=== PATIENT | male | born 1965 | race African-American/Black ===

== ENCOUNTER 2020-10-03 08:41 | Inpatient (IN) | payer BC ==
[~2020-10-03] VITALS: Ht 180.3 cm; Wt 83.5 kg
[2020-10-03] MEDS ORDERED: ACETAMINOPHEN 325MG TABLET PO STA (08:51)
[2020-10-03] MEDS ORDERED: LIDOCAINE HCL/PF 1% 2ML VIAL ONE (09:00)
[2020-10-03] MEDS ORDERED: CEFTRIAXONE 1 G PREMIX 50 ML IV ONE (09:00)
[2020-10-03] MEDS ORDERED: AZITHROMYCIN 500 MG in DEXT 5% WATER 250 ML IV ONE (09:00)
[2020-10-03] MEDS ORDERED: SODIUM CHLORIDE 0.9% 1000ML BAG (SEPSIS BOLUS) IV ONE (09:00)
[2020-10-03 09:30] LABS: BASOPHILS % 0.2 % (0.0-2.0); EOSINOPHILS % 0.1 % (0.0-5.0); HEMATOCRIT. 39.7 % (42.0-52.0); HEMOGLOBIN. 13.1 g/dL (14.0-18.0); LYMPHOCYTES % 8.1 % (20.0-50.0); MEAN CORPUSCULAR HEMOGLOBIN 30.3 pg (28.0-32.0); MEAN CORPUSCULAR VOLUME 91.8 fL (80.0-94.0); MEAN PLATELET VOLUME 9.3 fl (7.4-10.4); NEUTROPHILS % 85.6 % (40.0-76.0); PLATELET 253 x1000/uL (130-400); RED BLOOD CELL COUNT 4.32 mill/uL (4.7-6.1); RED CELL DISTRIBUTION WIDTH 12.9 % (11.6-14.6)
[2020-10-03 09:38] LABS: CHLORIDE 109 mEq/L (98-107)
[2020-10-03 09:40] LABS: INR 1.2; PROTHROMBIN TIME 12.5 sec (9.6-11.0)
[2020-10-03] MEDS ORDERED: DEXAMETHASONE 10 MG/ML VIAL IV ONE (09:45)
[2020-10-03] MEDS ORDERED: POTASSIUM CHLORIDE 20MEQ TABLET SR PO ONE (10:30)
[2020-10-03 12:55] LABS: CLARITY URINE CLEAR (CLEAR); COLOR URINE YELLOW (YELLOW); KETONES URINE 1+ (NEGATIVE); LEUKOCYTE ESTERASE URINE NEGATIVE (NEGATIVE); NITRITE URINE NEGATIVE (NEGATIVE); OCCULT BLOOD URINE 2+ (NEGATIVE); PROTEIN URINE 1+ (NEGATIVE); SPECIFIC GRAVITY URINE 1.019 (1.005-1.030); UROBILINOGEN URINE 0.2 E.U./dL (0.2-1.0)
[2020-10-03] MEDS ORDERED: AZITHROMYCIN 500 MG in DEXT 5% WATER 250 ML IV SCH (13:00)
[2020-10-03] MEDS ORDERED: DIPHENHYDRAMINE 50MG/ML VIAL IV PRN (13:00)
[2020-10-03] MEDS ORDERED: DOCUSATE SODIUM 100MG CAPSULE PO PRN (13:00)
[2020-10-03] MEDS ORDERED: GUAIFENESIN 200MG/10ML SUGAR FREE UDC PO PRN (13:00)
[2020-10-03] MEDS ORDERED: ONDANSETRON HCL 4MG/2ML INJ IV PRN (13:00)
[2020-10-03] MEDS ORDERED: ACETAMINOPHEN 650MG SUPP PR PRN (13:00)
[2020-10-03] MEDS ORDERED: LORAZEPAM 0.5MG TABLET PO PRN (13:00)
[2020-10-03] MEDS ORDERED: ACETAMINOPHEN 325MG TABLET PO PRN (13:00)
[2020-10-03] MEDS ORDERED: CLONIDINE 0.1MG TABLET PO PRN (13:00)
[2020-10-03] MEDS ORDERED: MAGNESIUM/ALUMINUM HYDROXIDE/SIMETHICONE 30ML UDC PO PRN (13:00)
[2020-10-03] MEDS ORDERED: HYDROCODONE/ACETAMINOPHEN 5/325MG TABLET PO PRN (13:00)
[2020-10-03] MEDS ORDERED: CEFTRIAXONE 1 G PREMIX 50 ML IV SCH (13:00)
[2020-10-03] MEDS ORDERED: NA PHOS,M-B/NA PHOS,DI-BA ENEMA 118ML PR PRN (13:00)
[2020-10-03 13:42] LABS: BG BASE EXCESS 1.2 mmol/L (-2.0-2.0); BG CARBOXYHEMOGLOBIN 0.3 % (0.5-1.5); BG DEOXYHEMOGLOBIN 4.1 % (0.0-5.0); BG HCO3 ACT 25.8 mmol/L (22.0-26.0); BG METHEMOGLOBIN 0.4 % (0.0-1.5); BG OXYGEN SATURATION 95.9 % (92.0-98.5); BG OXYHEMOGLOBIN 95.2 % (94.0-97.0); BG PCO2 40.8 mmHg (35.0-45.0); BG PH 7.419 (7.350-7.450); BG PO2 83.2 mmHg (75.0-100.0); BG SAMPLE SITE RIGHT RADIAL; BG TOTAL HEMOGLOBIN 12.3 g/dL (12.0-18.0); BG VENT MODE NASAL CANNULA
[2020-10-03] MEDS: ENOXAPARIN 40MG/0.4ML SYR SUBCUT SCH (15:11)
[2020-10-03] MEDS: FAMOTIDINE 20MG/2ML VIAL IV SCH (15:12)
[2020-10-03] MEDS: AMLODIPINE 5MG TABLET PO SCH (15:21)
[2020-10-03 17:13] VITALS: BP_SYST 148; BP_SYST 171; BP_DIAS 98
[2020-10-03 20:00] VITALS: BP 146/99
[2020-10-03] MEDS ORDERED: IVERMECTIN 3 MG TABLET PO SCH (22:20)
[2020-10-04] VITALS: BP 148/98
[2020-10-04 04:00] VITALS: BP 158/91
[2020-10-04 07:01] LABS: CHLORIDE 114 mEq/L (98-107)
[2020-10-04 07:09] LABS: LDL CHOLESTEROL 58 mg/dL (5-100)
[2020-10-04 07:10] LABS: HDL CHOLESTEROL 26 mg/dL (40-59)
[2020-10-04 07:11] LABS: PROSTRATE SPECIFIC AG TOTAL 9.83 ng/mL (0.0-4.0)
[2020-10-04 07:23] LABS: HEPATITIS B SURFACE ANTIGEN NEGATIVE
[2020-10-04 07:52] LABS: HEPATITIS A AB IGM NEGATIVE (NEGATIVE)
[2020-10-04 07:53] LABS: BASOPHILS % 0.5 % (0.0-2.0); HEMATOCRIT. 40.9 % (42.0-52.0); HEMOGLOBIN. 13.6 g/dL (14.0-18.0); LYMPHOCYTES % 9.8 % (20.0-50.0); MEAN CORPUSCULAR HEMOGLOBIN 30.7 pg (28.0-32.0); MEAN PLATELET VOLUME 9.5 fl (7.4-10.4); MONOCYTES % 4.7 % (2.0-8.0); RED BLOOD CELL COUNT 4.44 mill/uL (4.7-6.1); RED CELL DISTRIBUTION WIDTH 12.9 % (11.6-14.6)
[2020-10-04 08:00] VITALS: BP 146/81
[2020-10-04 08:13] LABS: PLATELET 115 x1000/uL (130-400)
[2020-10-04] MEDS: FAMOTIDINE 20MG/2ML VIAL IV SCH (08:54)
[2020-10-04] MEDS: AMLODIPINE 5MG TABLET PO SCH (08:54)
[2020-10-04 09:14] LABS: *AMPHETAMINES SCREEN URINE NEGATIVE (NEGATIVE); *BARBITURATES SCREEN URINE NEGATIVE (NEGATIVE); *BENZODIAZEPINES SCREEN URINE PRESUMTIVE POSITIVE (NEGATIVE); *COCAINE SCREEN URINE NEGATIVE (NEGATIVE); METHADONE URINE SCREEN NEGATIVE (NEGATIVE); OPIATES URINE SCREEN NEGATIVE (NEGATIVE)
[2020-10-04 09:15] LABS: CANNABINOID URINE SCREEN NEGATIVE (NEGATIVE); PHENCYCLIDINE URINE SCREEN NEGATIVE (NEGATIVE)
[2020-10-04] MEDS ORDERED: CEFTRIAXONE 1,000 MG in DEXTROSE 5% WATER 50 ML IV SCH (14:00)
[2020-10-04] MEDS ORDERED: AZITHROMYCIN 250 MG in DEXT 5% WATER 250 ML IV SCH (14:00)
[2020-10-04] MEDS: ENOXAPARIN 40MG/0.4ML SYR SUBCUT SCH (14:37)
[2020-10-04 20:00] VITALS: BP 140/83
[2020-10-05] MEDS ORDERED: IVERMECTIN 3 MG TABLET PO SCH (21:00)
[2020-10-06 05:12] LABS: HIV SCREEN 4G Non Reactive (Non Reactive)
== END 2020-10-05 00:05 | disposition left against medical advice (07) | DRG 871 ==
LOC: ER 08:41 → 7WST 12:19 → SUPCPDRO 12:58 → ENRESERV 15:15 → 5WST 10-04 03:35
PROVIDERS: ADMIT Internal Medicine; ATTEND Internal Medicine
DX: A41.9 Sepsis, unspecified organism (principal); J96.01 Acute respiratory failure with hypoxia; J18.9 Pneumonia, unspecified organism; D64.9 Anemia, unspecified; D72.810 Lymphocytopenia; E87.6 Hypokalemia; I10 Essential (primary) hypertension; R31.9 Hematuria, unspecified; R74.01 Elevation of levels of liver transaminase levels; R19.7 Diarrhea, unspecified; Z20.822 Contact with and (suspected) exposure to COVID-19; Z53.29 Procedure and treatment not carried out because of patient's decision for other reasons
CPT/HCPCS: 36415; 36600; 71045; 76700; 80053; 80061; 80305; 81003; 82270; 82375; 82805; 83036; 83605; 84145; 84153; 84439; 84443; 84484; 85025; 85379; 86141; 86705; 86709; 86803; 86850; 86900; 87015; 87045; 87340; 87389; 87427; 87449; 89055; 93005; 93306; 93970; 99291; J0456; J0696; J1100; J1200; J1650; J3490; J7030; J7040; J7060; U0003; G0103

== ENCOUNTER 2021-12-19 22:21 | Inpatient (IN) | payer BC ==
[~2021-12-19] VITALS: Ht 180.3 cm; Wt 91.4 kg
[2021-12-19] MEDS ORDERED: IOHEXOL-350 100 ML BOTTLE ONE (23:17)
[2021-12-19] MEDS ORDERED: SODIUM CHLORIDE 0.9% 1,000 ML IV ONE (23:45)
[2021-12-19 23:48] LABS: BASOPHILS % 0.3 % (0.0-2.0); EOSINOPHILS % 0.9 % (0.0-5.0); HEMATOCRIT. 38.7 % (42.0-52.0); HEMOGLOBIN. 13.2 g/dL (14.0-18.0); LYMPHOCYTES % 16.8 % (20.0-50.0); MEAN CORPUSCULAR HEMOGLOBIN 31.8 pg (28.0-32.0); MEAN CORPUSCULAR VOLUME 92.8 fL (80.0-94.0); MEAN PLATELET VOLUME 8.8 fl (7.4-10.4); MONOCYTES % 7.1 % (2.0-8.0); NEUTROPHILS % 74.9 % (40.0-76.0); PLATELET 183 x1000/uL (130-400); RED BLOOD CELL COUNT 4.17 mill/uL (4.7-6.1); RED CELL DISTRIBUTION WIDTH 12.4 % (11.6-14.6)
[2021-12-19 23:55] LABS: CHLORIDE 102 mEq/L (98-107)
[2021-12-19 23:59] LABS: ETHANOL BLOOD < 10 mg/dL
[2021-12-20] VITALS (7 sets, daily range): BP systolic 110–139; BP diastolic 63–96
[2021-12-20 00:22] LABS: CLARITY URINE CLEAR (CLEAR); COLOR URINE YELLOW (YELLOW); KETONES URINE NEGATIVE (NEGATIVE); LEUKOCYTE ESTERASE URINE NEGATIVE (NEGATIVE); NITRITE URINE NEGATIVE (NEGATIVE); OCCULT BLOOD URINE NEGATIVE (NEGATIVE); PH URINE 7.5 (4.5-8.0); PROTEIN URINE NEGATIVE (NEGATIVE); SPECIFIC GRAVITY URINE 1.022 (1.005-1.030); UROBILINOGEN URINE 0.2 E.U./dL (0.2-1.0)
[2021-12-20 00:32] LABS: *BARBITURATES SCREEN URINE NEGATIVE (NEGATIVE); *COCAINE SCREEN URINE NEGATIVE (NEGATIVE); CANNABINOID URINE SCREEN NEGATIVE (NEGATIVE); PHENCYCLIDINE URINE SCREEN NEGATIVE (NEGATIVE)
[2021-12-20 00:33] LABS: *AMPHETAMINES SCREEN URINE NEGATIVE (NEGATIVE); *BENZODIAZEPINES SCREEN URINE PRESUMTIVE POSITIVE (NEGATIVE); METHADONE URINE SCREEN NEGATIVE (NEGATIVE); OPIATES URINE SCREEN NEGATIVE (NEGATIVE)
[2021-12-20] MEDS ORDERED: GUAIFENESIN 200MG/10ML SUGAR FREE UDC PO PRN (04:30)
[2021-12-20] MEDS ORDERED: LORAZEPAM 0.5MG TABLET PO PRN (04:30)
[2021-12-20] MEDS ORDERED: ONDANSETRON HCL 4MG/2ML INJ IV PRN (04:30)
[2021-12-20] MEDS ORDERED: IPRATROPIUM/ALBUTEROL 0.5-3(2.5)MG/3ML NEB HHN PRN (04:30)
[2021-12-20] MEDS ORDERED: CLONIDINE 0.1MG TABLET PO PRN (04:30)
[2021-12-20] MEDS: ACETAMINOPHEN 325MG TABLET PO PRN (06:04)
[2021-12-20] MEDS ORDERED: ENOXAPARIN 40MG/0.4ML SYR SUBCUT SCH (09:00)
[2021-12-20] MEDS ORDERED: ENOXAPARIN 30MG/0.3ML SYR SUBCUT SCH (09:00)
[2021-12-20] MEDS ORDERED: MAGN400C PO (10:34)
[2021-12-20] MEDS ORDERED: TAMS-11 PO (10:34)
[2021-12-20] MEDS ORDERED: ALPR-394 PO (10:34)
[2021-12-20] MEDS ORDERED: ATOR40TA70 PO (10:34)
[2021-12-20] MEDS ORDERED: AZIL40TA MT (10:34)
[2021-12-20] MEDS ORDERED: ZOLP10TA2 PO (10:34)
[2021-12-20] MEDS ORDERED: ALD2525 PO (10:34)
[2021-12-20] MEDS: ASPIRIN 81MG EC TABLET PO SCH (10:41)
[2021-12-20] MEDS: ALPRAZOLAM 0.5 MG TABLET PO SCH (10:42)
[2021-12-20] MEDS ORDERED: *PATIENT'S OWN MEDICATION STORAGE XX SCH (11:15)
[2021-12-20] MEDS ORDERED: PNEUMOCOCCAL 23-VAL P-SAC VAC 0.5 ML IM ONE (11:15)
[2021-12-20] MEDS ORDERED: INFLUENZA VACCINE 05/PF 0.5 ML SYRINGE IM ONE (11:15)
[2021-12-20] MEDS ORDERED: ASPIRIN 81MG TABLET PO SCH (15:00)
[2021-12-20] MEDS ORDERED: HYDRALAZINE 20MG/ML VIAL IV PRN (15:15)
[2021-12-20] MEDS ORDERED: SPIRONOLACTONE 25MG TABLET PO SCH (15:15)
[2021-12-20] MEDS ORDERED: TAMSULOSIN HCL 0.4MG SR CAPSULE PO SCH (21:00)
[2021-12-20] MEDS ORDERED: ATORVASTATIN CALCIUM 40MG TABLET PO SCH (21:00)
[2021-12-20] MEDS ORDERED: ZOLPIDEM TARTRATE 5MG TABLET PO PRN (21:00)
[2021-12-20] MEDS ORDERED: ATORVASTATIN CALCIUM 10MG TABLET PO SCH (21:00)
[2021-12-21] VITALS: BP 112/60
[2021-12-21] MEDS: ACETAMINOPHEN 325MG TABLET PO PRN (00:26)
[2021-12-21 04:00] VITALS: BP 105/69
[2021-12-21 07:46] LABS: BASOPHILS % 0.6 % (0.0-2.0); CHLORIDE 104 mEq/L (98-107); EOSINOPHILS % 1.6 % (0.0-5.0); HEMATOCRIT. 40.1 % (42.0-52.0); LYMPHOCYTES % 20.7 % (20.0-50.0); MEAN CORPUSCULAR HEMOGLOBIN 31.7 pg (28.0-32.0); MEAN CORPUSCULAR VOLUME 90.8 fL (80.0-94.0); MEAN PLATELET VOLUME 8.9 fl (7.4-10.4); MONOCYTES % 6.4 % (2.0-8.0); NEUTROPHILS % 70.7 % (40.0-76.0); PLATELET 197 x1000/uL (130-400); RED BLOOD CELL COUNT 4.42 mill/uL (4.7-6.1); RED CELL DISTRIBUTION WIDTH 12.4 % (11.6-14.6)
[2021-12-21 08:00] VITALS: BP_SYST 123; BP_SYST 127; BP_SYST 132; BP_DIAS 80; BP_DIAS 81; BP_DIAS 82
[2021-12-21] MEDS: ASPIRIN 81MG EC TABLET PO SCH (08:12)
[2021-12-21] MEDS: ALPRAZOLAM 0.5 MG TABLET PO SCH (08:12)
[2021-12-21] MEDS ORDERED: ENOXAPARIN 40MG/0.4ML SYR SUBCUT SCH (09:00)
[2021-12-21 12:00] VITALS: BP 119/71
[2021-12-21 15:12] VITALS: BP 119/71
[2021-12-21 16:00] VITALS: BP 121/83
== END 2021-12-21 16:47 | disposition home or self-care (01) | DRG 312 ==
LOC: ER 22:21 → 8WST 12-20 01:46 → EDBEDREQSVC 12-20 01:49 → EDBEDREQTM 12-20 01:49 → EDBEDREQ 12-20 01:49 → EDBEDREQSVC 12-20 07:15 → ENRESERV 12-20 08:09
PROVIDERS: ADMIT Internal Medicine; ATTEND Internal Medicine
DX: I95.1 Orthostatic hypotension (principal); N17.9 Acute kidney failure, unspecified; E87.1 Hypo-osmolality and hyponatremia; E78.5 Hyperlipidemia, unspecified; I10 Essential (primary) hypertension; F41.9 Anxiety disorder, unspecified; G47.00 Insomnia, unspecified; I15.8 Other secondary hypertension; R73.9 Hyperglycemia, unspecified; Z87.891 Personal history of nicotine dependence; Z23 Encounter for immunization; T50.995A Adverse effect of other drugs, medicaments and biological substances, initial encounter; Y92.89 Other specified places as the place of occurrence of the external cause
CPT/HCPCS: 36415; 70496; 70498; 70551; 71045; 76770; 80048; 80053; 80305; 80320; 81003; 82962; 83036; 83880; 84484; 85025; 90686; 90732; 93005; 93306; 99285; J1650; J7030; J7040; Q9967; G0480

== ENCOUNTER 2022-03-28 13:11 | Emergency (ER) | payer BC ==
[~2022-03-28] VITALS: Ht 182.9 cm; Wt 91.0 kg
[~2022-03-28 13:11] MED LIST: ALD2525 PO; ALPR-394 PO; ATOR40TA70 PO; MAGN400C PO; TAMS-11 PO; ZOLP10TA2 PO
[2022-03-28] MEDS ORDERED: SODIUM CHLORIDE 0.9% 1,000 ML IV ONE ×2 (14:00→16:00)
[2022-03-28 15:19] LABS: BASOPHILS % 0.5 % (0.0-2.0); EOSINOPHILS % 0.9 % (0.0-5.0); HEMATOCRIT. 40.7 % (42.0-52.0); HEMOGLOBIN. 13.6 g/dL (14.0-18.0); LYMPHOCYTES % 17.2 % (20.0-50.0); MEAN CORPUSCULAR HEMOGLOBIN 30.9 pg (28.0-32.0); MEAN CORPUSCULAR VOLUME 92.4 fL (80.0-94.0); MEAN PLATELET VOLUME 9.3 fl (7.4-10.4); NEUTROPHILS % 73.4 % (40.0-76.0); PLATELET 260 x1000/uL (130-400); RED BLOOD CELL COUNT 4.41 mill/uL (4.7-6.1); RED CELL DISTRIBUTION WIDTH 12.5 % (11.6-14.6)
[2022-03-28 15:32] LABS: CHLORIDE 104 mEq/L (98-107)
[2022-03-28 17:00] VITALS: BP 99/56
== END 2022-03-28 17:27 | disposition home or self-care (01) ==
LOC: ER 13:11
DX: R55 Syncope and collapse (principal); N17.9 Acute kidney failure, unspecified; I10 Essential (primary) hypertension; E78.00 Pure hypercholesterolemia, unspecified; Z86.16 Personal history of COVID-19
CPT/HCPCS: 36415; 71045; 80053; 84484; 85025; 96360; 96361; 99284; J7030